=== PATIENT | female | born 1995 | race Caucasian/White ===

== ENCOUNTER 2021-03-22 09:06 | Emergency (ER) | payer MEDICAID, OTHER ==
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
[2021-03-22 10:28] VITALS: BP 132/79; PULSE 76; O2SAT 99
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
== END 2021-03-22 10:29 | disposition home or self-care (01) ==
LOC: ED 09:06
DX: T14.8XXA Other injury of unspecified body region, initial encounter (principal); V89.2XXA Person injured in unspecified motor-vehicle accident, traffic, initial encounter; M79.631 Pain in right forearm; S80.811A Abrasion, right lower leg, initial encounter; S20.211A Contusion of right front wall of thorax, initial encounter
CPT/HCPCS: 71100; 73090; 73590; 99284